=== PATIENT | male | born 1965 | race Caucasian/White ===

== ENCOUNTER 2022-09-06 22:00 | Emergency (ER) | payer MEDICAID ==
[~2022-09-06] VITALS: Ht 177.8 cm; Wt 79.4 kg
[2022-09-06 22:03] VITALS: BP 160/77
--- NOTE | 2022-09-06 22:03 | NUR ---
PT BROUGHT TO BED 2 VIA [facility]
--- NOTE | 2022-09-06 22:15 | NUR ---
56 Y/O M PRESENTS WITH MOUTH PAIN FROM PREVIOUS ORAL SURGERY YESTERDAY. PT STATED "MY MOUTH CONTINUED TO BLEED AND WASNT STOPPING." PT STATED PAIN IS 8/10. DURING ORAL SURGERY ONE R MOLAR WAS REMOVED SUCCESFULLY AND ANOTHER MOLAR WAS UNSUCCESSFUL WITH REMOVAL. PT IS A&OX3, SKIN INTACT, RESPIRATIONS EVEN AND UNLABORED. UPON ARRIVAL FROM [facility] PT HAD DRY BLOOD AROUND MOUTH R SIDE. SISTER WAS AT BEDSIDE PMH- PT DENIES NKA
--- NOTE | 2022-09-06 22:58 | NUR ---
IRRIGATED PATIENTS AROUND SKIN (MOUTH AREA).
--- NOTE | 2022-09-06 23:07 | NUR ---
ER AT BEDSIDE
[2022-09-06] MEDS ORDERED: HYDROcodone/APAP 5/325 MG 1 TAB TAB PO ONE (23:15)
--- NOTE | 2022-09-06 23:15 | NUR ---
PT SISTER AT BEDSIDE
== END 2022-09-06 23:46 | disposition home or self-care (01) ==
LOC: MED 22:00
DX: G89.18 Other acute postprocedural pain (principal); K08.89 Other specified disorders of teeth and supporting structures
CPT/HCPCS: 99283

== ENCOUNTER 2023-05-24 11:58 | Emergency (ER) | payer BC, MEDICAID ==
[~2023-05-24] VITALS: Ht 167.6 cm; Wt 68.0 kg
[2023-05-24 12:38] VITALS: BP 134/76; PULSE 89; RESP 18; TEMP 97; O2SAT 98
[2023-05-24 13:54] LABS: BASOPHILS # (AUTO) 0.1 K/uL (0.00-0.22); BASOPHILS % (AUTO) 0.8 % (0.0-2.0); EOSINOPHILS # (AUTO) 0.3 K/uL (0-0.4); EOSINOPHILS % (AUTO) 3.4 % (0.0-4.0); HEMATOCRIT 40.3 % (36-52); HEMOGLOBIN 13.6 g/dL (12.0-18.0); LYMPHOCYTES # (AUTO) 1.8 K/uL (2.0-11.5); LYMPHOCYTES % (AUTO) 24.4 % (20.5-51.1); MEAN CORPUSCULAR HEMOGLOBIN 30 pg (27-31); MEAN CORPUSCULAR HGB CONC 34 g/dL (33-37); MEAN CORPUSCULAR VOLUME 89.2 fL (80-94); MONOCYTES # (AUTO) 0.6 K/uL (0.8-1.0); MONOCYTES % (AUTO) 8.1 % (1.7-9.3); NEUTROPHILS # (AUTO) 4.7 K/uL (1.8-7.7); NEUTROPHILS % (AUTO) 63.3 % (42.2-75.2); PLATELET COUNT (AUTO) 301 K/uL (140-450); RED BLOOD CELL COUNT(AUTO) 4.51 MIL/uL (4.20-6.10); RED CELL DISTRIBUTION WIDTH 15.1 % (11.6-13.7); WHITE BLOOD COUNT (AUTO) 7.5 K/uL (4.8-10.8)
[2023-05-24 14:09] LABS: ANION GAP 10.8 (8-16); CALCIUM 9.2 mg/dL (8.5-10.1); CARBON DIOXIDE 28.4 mmol/L (21-32); CREATININE 1.3 mg/dL (0.6-1.3)
[2023-05-24 14:20] LABS: POTASSIUM 6.2 mmol/L (3.5-5.1)
[2023-05-24] MEDS ORDERED: SODI10PO PO (14:40)
[2023-05-24 14:58] VITALS: BP 134/76; PULSE 89; RESP 18; TEMP 97; O2SAT 98
== END 2023-05-24 15:08 | disposition home or self-care (01) ==
LOC: MED 11:58
DX: R06.00 Dyspnea, unspecified (principal); R06.02 Shortness of breath; T50.995A Adverse effect of other drugs, medicaments and biological substances, initial encounter; E87.5 Hyperkalemia; Z79.899 Other long term (current) drug therapy; Y92.89 Other specified places as the place of occurrence of the external cause
CPT/HCPCS: 36415; 71045; 80048; 83880; 84484; 85025; 85379; 93005; 99285